=== PATIENT | male | born 1985 | race Caucasian/White ===

== ENCOUNTER 2020-08-24 16:06 | Outpatient (REF) | payer SELFPAY | END 2020-08-24 16:07 | disposition home or self-care (01) | LOC: HO.LNP 16:06 | PROVIDERS: Visit Provider Physician Assistant Medical | DX: Z20.828 Contact with and (suspected) exposure to other viral communicable diseases (principal) | CPT/HCPCS: 87635 ==

== ENCOUNTER 2020-09-05 15:01 | Outpatient (REF) | payer OTHER, SELFPAY ==
--- NOTE | 2020-09-05 15:04 | CT_ITS ---
EXAMINATION: CT CHEST WITHOUT CONTRAST CLINICAL INFORMATION: Pulmonary aspergilloma COMPARISON: None TECHNIQUE: Multidetector volumetric CT imaging of the chest was done. Axial MIP volume rendering provided. Sagittal and coronal reformatted images were obtained. This CT examination was performed using dose optimization techniques as appropriate, variously including the following: *Automated exposure control *Adjustment of mA and/or kV according to patient size (this includes techniques or standardized protocols for targeted exams where dose is matched to indication/reason for exam; i.e. extremities or head) *Use of iterative reconstruction technique DLP: 184 mGy-cm FINDINGS: [employer]: Increased markings in the right upper lobe LUNGS: There is focal cylindrical bronchiectasis, bronchial wall thickening, some bronchial soft tissue opacification and increased peribronchial attenuation seen in the posterior segment of the right upper lobe. The lungs are otherwise clear. No suspicious pulmonary nodule or mass is seen. There is no evidence of emphysema or interstitial lung disease. No endobronchial or endotracheal lesion is seen. MEDIASTINUM: There is shotty mediastinal lymphadenopathy. Largest lymph nodes in the right paratracheal and subcarinal regions are upper normal in size from 1 cm in short axis. No enlarged lymph nodes are seen. Evaluation for hilar adenopathy is limited without contrast. No definite enlarged hilar nodes are seen. Mediastinum is otherwise normal. PLEURA: There is no pleural effusion. No pleural mass or thickening. AXILLA: No lymphadenopathy. UPPER ABDOMEN: There is a small stone in the upper pole of the left kidney. OSSEOUS STRUCTURES: Unremarkable. CT/CT chest wo con IMPRESSION: Focal bronchiectasis and bronchial wall thickening in the posterior segment of the right upper lobe.
== END 2020-09-05 15:02 | disposition home or self-care (01) ==
LOC: HO.CT 15:01
PROVIDERS: PCP Internal Medicine; Visit Provider Surgery
DX: B44.9 Aspergillosis, unspecified (principal)
CPT/HCPCS: 71250

== ENCOUNTER → 2020-09-21 09:45 | Outpatient (BNVA) | payer OTHER, SELFPAY | PROVIDERS: PCP Internal Medicine; Visit Provider Surgery | DX: B44.1 Other pulmonary aspergillosis (principal); B44.81 Allergic bronchopulmonary aspergillosis | CPT/HCPCS: 99214 ==

== ENCOUNTER → 2020-09-26 15:32 | Outpatient (BNVA) | payer OTHER, SELFPAY | PROVIDERS: PCP Internal Medicine; Visit Provider Internal Medicine Pulmonary Disease | DX: Z76.89 Persons encountering health services in other specified circumstances (principal) ==

== ENCOUNTER 2020-09-26 15:57 | Outpatient (REF) | payer OTHER, SELFPAY ==
[2020-09-26 16:48] LABS: MANUAL DIFF FLAG NO
[2020-09-26 16:55] LABS: Basophils Absolute Auto 0.1 X10*3/uL (0.0-0.2); Eosinophils Absolute Auto 0.4 X10*3/uL (0.0-0.4); Eosinophils Percent Auto 6.4 % (0-4); Hematocrit 45.1 % (42-52); Hemoglobin 15.4 g/dl (14.0-18.0); Imm Gran Abs Auto 0.01 X10*3/uL (0.00-0.03); Imm Gran Pct Auto 0.2 % (0.0-0.4); Lymphocytes Absolute Auto 1.8 X10*3/uL (1.2-4.9); Lymphocytes Percent Auto 29.2 % (20-40); Mean Corpuscular HGB Conc 34.1 g/dl (31.0-36.0); Mean Corpuscular Hemoglobin 30.7 pg (27.0-33.0); Mean Corpuscular Volume 89.8 fL (80-98); Mean Platelet Volume 9.9 fL (9.4-12.4); Monocytes Absolute Auto 0.7 X10*3/uL (0.1-1.2); Monocytes Percent Auto 10.6 % (2-11); Neutrophils Absolute Auto 3.2 X10*3/uL (2.0-8.3); Neutrophils Percent Auto 52.6 % (45-73); Platelet Count 266 X10*3/uL (160-400); Red Blood Count 5.02 X10*6/uL (4.60-5.80); Red Cell Distribution Width 13.1 % (11.0-16.0); White Blood Count 6.1 X10*3/uL (4.8-10.8)
== END 2020-09-26 15:58 | disposition home or self-care (01) ==
LOC: HO.LAB 15:57
PROVIDERS: Internal Medicine Pulmonary Disease; PCP Internal Medicine; Visit Provider Physician Assistant Medical
DX: J45.50 Severe persistent asthma, uncomplicated (principal); Z20.828 Contact with and (suspected) exposure to other viral communicable diseases
CPT/HCPCS: 36415; 82785; 85025; 86003; U0003

== ENCOUNTER 2020-11-15 | Outpatient (REF) | payer OTHER, SELFPAY | END 2020-11-15 00:01 | disposition home or self-care (01) | LOC: HO.LNP | PROVIDERS: Visit Provider Physician Assistant | DX: Z20.822 Contact with and (suspected) exposure to COVID-19 (principal) | CPT/HCPCS: 36415; U0003 ==

== ENCOUNTER → 2021-09-11 15:29 | Outpatient (BNVA) | payer OTHER, SELFPAY | PROVIDERS: PCP Internal Medicine; Visit Provider Internal Medicine Pulmonary Disease ==

== ENCOUNTER → 2021-10-11 15:30 | Outpatient (BNVA) | payer OTHER, SELFPAY | PROVIDERS: PCP Internal Medicine; Visit Provider Internal Medicine Pulmonary Disease ==

== ENCOUNTER → 2022-01-14 15:28 | Outpatient (BNVA) | payer OTHER, SELFPAY | PROVIDERS: PCP Internal Medicine; Visit Provider Internal Medicine Pulmonary Disease ==

== ENCOUNTER → 2023-08-21 07:48 | Outpatient (BNVA) | payer SELFPAY | PROVIDERS: PCP Internal Medicine | DX: Z01.10 Encounter for examination of ears and hearing without abnormal findings (principal) ==